=== PATIENT | male | born 1985 | race Caucasian/White ===

== ENCOUNTER 2024-02-23 08:11 | Outpatient (CLI) | payer BC ==
[2024-02-23 08:44] LABS: #Basophils 0.03 10x3/uL (0.0-0.2); #Eosinophils 0.16 10x3/uL (0.0-0.5); #Monocytes 0.74 10x3/uL (0.0-1.1); #Neutrophils 3.69 10x3/uL (1.5-8.4); %Basophils 0.4 % (0.0-2.0); %Eosinophils 2.4 % (0.0-6.0); %Lymphocytes 31.2 % (18.0-47.0); %Monocytes 10.9 % (0.0-10.0); %Neutrophils 54.4 % (40.0-75.0); Hematocrit 43.4 % (38.8-50.0); Hemoglobin 14.8 g/dL (13.5-17.5); Mean Corpuscular HGB CONC 34.1 g/dL (32.0-36.0); Mean Corpuscular Hemoglobin 30.8 pg (27.0-33.0); Mean Corpuscular Volume 90.4 fL (81.2-95.1); Mean Platelet Volume 10.9 fL (7.4-10.4); Platelet Count 201 10x3/uL (150-450); RBC Distribution Width 12.4 % (11.5-14.5); White Blood Cell (WBC) Count 6.8 10x3/uL (3.5-10.5)
[2024-02-23 08:56] LABS: Anion Gap 13 mmol/L (10-20); BUN (Urea Nitrogen) 15 mg/dL (8.9-20.6); Calc. Creatinine Clearance 0 mL/min (70-130); Calcium 9.2 mg/dL (7.8-10.44); Carbon Dioxide 25 mmol/L (22-29); Chloride 107 mmol/L (98-107); Estimated GFR 115; Glucose 96 mg/dL (70-105); Sodium 141 mmol/L (136-145)
== END 2024-02-23 08:12 | disposition home or self-care (01) ==
LOC: CSHLAB 08:11
PROVIDERS: ATTEND Surgery
DX: Z01.818 Encounter for other preprocedural examination (principal); K40.90 Unilateral inguinal hernia, without obstruction or gangrene, not specified as recurrent
CPT/HCPCS: 80048; 85025; 93005; 93010

== ENCOUNTER 2024-02-29 05:53 | Day surgery (SDC) | payer BC ==
[2024-02-23 08:08] VITALS: BMI 34.4
[2024-02-29] MEDS ORDERED: Bupivacaine/Epinephrine 0.25% 30 ML VIAL ONE (07:05)
[2024-02-29] MEDS ORDERED: Sevoflurane 250 ML INH ANEST BOTTLE ONE (07:06)
[2024-02-29] MEDS ORDERED: PROPOFOL 20 ML ONE ×2 (07:14→07:39)
[2024-02-29] MEDS ORDERED: fentaNYL 50 mcg/mL 1 mL Vial ONE ×3 (07:14→09:03)
[2024-02-29] MEDS ORDERED: Rocuronium Bromide 10 MG/ML (10ML VIAL) ONE (07:14)
[2024-02-29] MEDS ORDERED: Lidocaine 1% PF 5 ML VIAL ONE (07:14)
[2024-02-29] MEDS ORDERED: LevoFLOXacin D5W 500 mg (100 mL) BAG ONE (07:18)
[2024-02-29] MEDS ORDERED: Dexamethasone 20 MG/5 ML VIAL ONE (07:51)
[2024-02-29] MEDS ORDERED: Ondansetron PF 4 MG/2 ML Vial ONE (07:51)
[2024-02-29] MEDS ORDERED: SUGAMMADEX SODIUM 200 MG/2 ML VIAL ONE (08:35)
[2024-02-29] MEDS ORDERED: Ketorolac Tromethamine 30 MG (1 mL) VIAL ONE (08:41)
[2024-02-29] MEDS ORDERED: HYDROcodone/Acetaminophen 5/325 mg Tablet ONE (09:45)
== END 2024-02-29 10:30 | disposition home or self-care (01) ==
LOC: CSHSDC 05:53
PROVIDERS: ATTEND Surgery
PROC: 0YUA4JZ Supplement Bilateral Inguinal Region with Synthetic Substitute, Percutaneous Endoscopic Approach (ICD-10-PCS; principal; 2024-02-29)
DX: K40.20 Bilateral inguinal hernia, without obstruction or gangrene, not specified as recurrent (principal); K21.9 Gastro-esophageal reflux disease without esophagitis; Z88.0 Allergy status to penicillin; Z88.2 Allergy status to sulfonamides; Z88.1 Allergy status to other antibiotic agents; Z79.899 Other long term (current) drug therapy
CPT/HCPCS: C1781; J1100; J1885; J1956; J2405; J2704; J3010; S2900